=== PATIENT | female | born 1965 | race Caucasian/White ===

== ENCOUNTER → 2023-05-31 | Outpatient (CLI) | payer OTHER ==
--- NOTE | 2023-05-31 10:50 | XR ---
EXAMINATION TYPE: XR ankle complete RT DATE OF EXAM: 05/31/2023 COMPARISON: NONE HISTORY: Pain FINDINGS: Three views of the ankle demonstrate the ankle mortise to be intact and symmetric. The joint spaces are preserved. The osseous structures are intact. Tiny bony density along the inferior margin likel y related to remote trauma. Tiny spur along the medial malleolus. Small calcaneal spurs. IMPRESSION: 1. Small calcaneal spurs. 2. Mild spurring of the medial malleolus. 3. Suspect tiny remote avulsion injury lateral malleolus.
== END | disposition home or self-care (01) ==
LOC: RADXRMAIN 10:27
PROVIDERS: ATTEND Internal Medicine Geriatric Medicine
DX: M77.31 Calcaneal spur, right foot (principal)

== ENCOUNTER → 2023-06-13 | Outpatient (CLI) | payer OTHER ==
--- NOTE | 2023-06-23 07:49 | MR ---
EXAMINATION TYPE: MR ankle RT wo con DATE OF EXAM: 06/13/2023 COMPARISON: Radiograph 05/31/2023 HISTORY: 57-year-old female M25.571 Rt ankle pain and swelling TECHNIQUE: Multiplanar, multisequence images of the right ankle were obtained without IV contrast. FINDINGS: There is moderate to severe tendon sheath fluid along the lateral peroneal tendons. There is a partial thickness split tear of the supramalleolar and malleolar peroneus brevis with a co mplete split tear of the inframalleolar portion at and just beyond the peroneal tubercle. The inserti on remains intact. The inframalleolar peroneus longus located approximately 2.5 cm below the lateral malleolus shows a s ignificant partial-thickness tear spanning 2.2 cm. The distal aspect of the tear is located at the l evel of the cuboid. ATFL, PTFL, and CFL appear intact. Deltoid spring ligament complex appear intact. The medial flexor tendons appear intact. Of note, ther e is a type II accessory navicular bone with only minimal degenerative changes at the pseudoarticulat ion. No significant marrow edema here. There is mild thickening at the anterior inferior tibiofibular ligament which otherwise appears intac t. Anterior extensor tendons appear intact. Smooth delineation to the Achilles tendon. There is a tiny plantar heel spur. Origin of the plantar f ascia is intact. Preserved fatty signal within the sinus Tarsi. Tarsal tunnel is clear. No acute or healing fracture. Mild degenerative spurring within the tibiotalar joint. No significant joint effusion. Subtalar joint is aligned. IMPRESSION: 1. Moderate to severe peroneal tenosynovitis. The peroneus brevis shows a partial-thickness split tea r along the supramalleolar and malleolar portions. There is a full-thickness split tear of the infram alleolar portion at and just beyond the peroneal tubercle. The insertion remains intact. 2. Sizable partial thickness atrophic tear of the inframalleolar peroneus longus spanning 2.2 cm. Thi s begins 2.5 cm below the lateral malleolus and extends to the level of the cuboid. 3. Type II accessory navicular. Only minimal degenerative change here at the pseudoarticulation. No a bnormal bone marrow edema. 4. Old sprain of the AITFL.
== END | disposition home or self-care (01) ==
LOC: RADMRIMAIN 08:13
PROVIDERS: ATTEND Podiatrist
DX: M65.171 Other infective (teno)synovitis, right ankle and foot (principal); M66.371 Spontaneous rupture of flexor tendons, right ankle and foot